=== PATIENT | female | born 1945 | race Caucasian/White ===

== ENCOUNTER 2017-05-24 16:20 | Inpatient (IN) | payer MEDICARE, MEDICAID ==
[~2017-05-24] VITALS: Ht 162.6 cm; Wt 118.4 kg
[~2017-05-24 16:20] MED LIST: ASP81EC PO; Atorvastatin Calcium PO; CYCL1TAB18 PO; DIPH2.5T73 PO; ESOM40CA39 PO; FENO1TAB42 PO; FER325T PO; HYDR25T PO; INSUINJ37 SUBCUT; Insulin Detemir SC; LIS10T PO; LORA-655 PO; MORP15TA PO; MUPI2OIN10 TOP; ONDA4TAB5 PO; OXY10CRT PO; ROSU20TA14 PO; SUCR1TAB36 PO; VENL37.56 PO; ZOLP10TA PO
[2017-05-24] MEDS ORDERED: SODIUM CHLORIDE 0.9% 2,000 ML IV ONE (17:45)
[2017-05-24 17:55] LABS: Basophils # (auto) 0 uL; Eosinophils # (auto) 0 uL; Eosinophils % (auto) 0.4 % (0.0-7.0); Lymphocytes # (auto) 0.5 uL; Neutrophils # (auto) 7.8 uL; Red Blood Cells 5.15 10^6/uL (4.0-5.20); Red Cell Distribution Width 17.3 % (11.8-14.3); White Blood Cell 8.9 10^3/uL (4.4-10.8)
[2017-05-24 17:56] LABS: Basophils % (auto) 0.3 % (0.0-2.0); Hematocrit 38.9 % (36.0-46.0); Hemoglobin 12.6 g/dL (12.2-16.2); Lymphocytes % (auto) 5.8 % (10.0-50.0); Mean Corpuscular Hemoglobin 24.4 pg (28.0-32.0); Mean Corpuscular Hgb Conc. 32.3 g/dL (32.0-36.0); Mean Corpuscular Volume 75.5 fL (80.0-100.0); Monocytes # (auto) 0.6 uL; Monocytes % (auto) 6.2 % (0.0-12.0); Neutrophils % (auto) 87.3 % (37.0-80.0); Nucleated Red Blood Cells % 0.1 %; Platelet Count (auto) 187 10^3/uL (140-450)
[2017-05-24] MEDS ORDERED: MORPHINE SULF INJ 2 MG/ML SYRINGE 1ML IV ONE (18:00)
[2017-05-24] MEDS ORDERED: ONDANSETRON HCL 4 MG/2 ML VIAL IV ONE (18:00)
[2017-05-24 18:05] LABS: Urine Amorphous Crystal FEW /hpf (None Seen); Urine Bacteria NONE SEEN /hpf (None Seen); Urine Blood 3+ /uL (Negative); Urine Mucus FEW (None Seen); Urine Specific Gravity 1.021 (1.001-1.035); Urine WBC 1 /hpf (0 - 5)
[2017-05-24 18:19] LABS: Albumin 3.7 g/dL (3.4-5.0); Bilirubin, Total 0.8 mg/dL (0.2-1.0); Calcium 9.5 mg/dL (8.5-10.1); Magnesium 2.7 mg/dL (1.6-2.6); Potassium 5.3 mmol/L (3.5-5.1); Total Protein 7.7 g/dL (6.4-8.2)
[2017-05-24 18:40] LABS: Alcohol, Urine < 3.0 mg/dL (0-5); Amphetamine Screen, Urine NEGATIVE (NEGATIVE); Barbiturate Scree,Urine NEGATIVE (NEGATIVE); Benzodiazephine Screen, Urine NEGATIVE (NEGATIVE); Cannabinoid Screen, Urine NEGATIVE (NEGATIVE); Cocaine Screen, Urine NEGATIVE (NEGATIVE); Opiate Scree,Urine NEGATIVE (NEGATIVE); Phencyclidine Screen, Urine NEGATIVE (NEGATIVE)
[2017-05-24] MEDS ORDERED: HYDROmorphone HCL 2 MG/ML VL IV ONE (19:00)
[2017-05-24] MEDS ORDERED: InsuLIN R (HUMAN) 100 UNITS in SODIUM CHL 0.9% 99 ML IV SCH ×5 (19:13→19:17)
[2017-05-24] MEDS ORDERED: SODIUM CHLORIDE 0.9% 1,000 ML IV SCH ×3 (19:13→23:17)
[2017-05-24] MEDS ORDERED: MORPHINE SULF INJ 2 MG/ML SYRINGE 1ML IV PRN ×2 (19:15)
[2017-05-24] MEDS ORDERED: NITROGLYCERIN 0.4 MG SL TAB SL PRN (19:15)
[2017-05-24] MEDS ORDERED: DEXTROSE (50%) 50ML SYRG IV PRN ×2 (19:30→20:45)
[2017-05-24] MEDS ORDERED: ACCU-CHEK COMFORT CURVE STRIP VI SCH (19:30)
[2017-05-24] MEDS: SODIUM CHLORIDE 0.9% 1,000 ML IV SCH ×2 (20:40→22:40)
[2017-05-24] MEDS ORDERED: ENOXAPARIN SOD 100 MG/1 ML SYRINGE SC ONE (21:00)
[2017-05-24] MEDS: ACCU-CHEK COMFORT CURVE STRIP VI SCH ×3 (21:02→23:35)
[2017-05-24] MEDS: InsuLIN R (HUMAN) 100 UNITS in SODIUM CHL 0.9% 99 ML IV SCH ×2 (21:05→22:16)
[2017-05-25] MEDS ORDERED: SODIUM CHLORIDE 0.9% 1,000 ML IV SCH ×3 (00:40→12:15)
[2017-05-25] MEDS: ACCU-CHEK COMFORT CURVE STRIP VI SCH ×11 (01:35→23:29)
[2017-05-25 02:10] LABS: BUN/Creatinine Ratio 28.2; Calcium 7.9 mg/dL (8.5-10.1); Magnesium 1.8 mg/dL (1.6-2.6); Phosphorus 3.6 mg/dL (2.5-4.90); Potassium 3.7 mmol/L (3.5-5.1)
[2017-05-25] MEDS: SODIUM CHLORIDE 0.9% 1,000 ML IV SCH ×4 (02:49→22:40)
[2017-05-25 04:24] LABS: BUN/Creatinine Ratio 28.7; Calcium 8.2 mg/dL (8.5-10.1); Magnesium 2.1 mg/dL (1.6-2.6); Phosphorus 2.9 mg/dL (2.5-4.90); Potassium 3.6 mmol/L (3.5-5.1)
[2017-05-25] MEDS ORDERED: SODIUM CHLORIDE 0.9% 500 ML IV ONE (05:15)
[2017-05-25] MEDS ORDERED: DILTIAZEM HCL 25 MG/5 ML VIAL IV ONE (06:15)
[2017-05-25 06:26] LABS: BUN/Creatinine Ratio 31.7; Calcium 7.9 mg/dL (8.5-10.1); Phosphorus 2.5 mg/dL (2.5-4.90); Potassium 3.5 mmol/L (3.5-5.1)
[2017-05-25] MEDS ORDERED: AMIODARONE HCL 150 MG in D5W 5% 100 ML IV ONE (07:30)
[2017-05-25] MEDS ORDERED: AMIODARONE HCL 900 MG in DEXTROSE 500 ML IV SCH (07:31)
[2017-05-25 09:04] LABS: INR 1.08 (0.9-1.15); Partial Thromboplastin Time 22.6 sec (22.64-33.71); Prothrombin Time 11.8 sec (9.37-12.3)
[2017-05-25 09:16] LABS: BUN/Creatinine Ratio 34.1; Calcium 8.3 mg/dL (8.5-10.1); Potassium 3.5 mmol/L (3.5-5.1)
[2017-05-25] MEDS: InsuLIN REG 1unit/0.01ml Soln (100units/ml) SC SCH ×3 (12:00→23:29)
[2017-05-25] MEDS ORDERED: DEXTROSE (50%) 50ML SYRG IV PRN (12:45)
[2017-05-25 15:01] LABS: BUN/Creatinine Ratio 35.9; Calcium 7.8 mg/dL (8.5-10.1); Potassium 3.9 mmol/L (3.5-5.1)
[2017-05-25] MEDS ORDERED: InsuLIN REG 1unit/0.01ml Soln (100units/ml) IV ONE (15:45)
[2017-05-25] MEDS: AMIODARONE HCL 900 MG in DEXTROSE 500 ML IV SCH (18:22)
[2017-05-25 21:44] LABS: BUN/Creatinine Ratio 33.6; Calcium 8.2 mg/dL (8.5-10.1); Potassium 3.9 mmol/L (3.5-5.1)
[2017-05-25] MEDS ORDERED: ENOXAPARIN SOD 100 MG/1 ML SYRINGE SC SCH (22:00)
[2017-05-26] MEDS: SODIUM CHLORIDE 0.9% 1,000 ML IV SCH ×2 (01:00→14:20)
[2017-05-26] MEDS: InsuLIN REG 1unit/0.01ml Soln (100units/ml) SC SCH ×5 (04:00→20:00)
[2017-05-26] MEDS: ACCU-CHEK COMFORT CURVE STRIP VI SCH ×5 (04:00→20:00)
[2017-05-26 05:40] LABS: Basophils # (auto) 0 uL; Basophils % (auto) 0.1 % (0.0-2.0); Eosinophils # (auto) 0 uL; Eosinophils % (auto) 0.1 % (0.0-7.0); Hematocrit 35.6 % (36.0-46.0); Mean Corpuscular Volume 72.9 fL (80.0-100.0); Neutrophils # (auto) 5.1 uL; Nucleated Red Blood Cells % 0.4 %; Red Blood Cells 4.89 10^6/uL (4.0-5.20)
[2017-05-26 05:43] LABS: Hemoglobin 11.8 g/dL (12.2-16.2); Lymphocytes # (auto) 0.7 uL; Lymphocytes % (auto) 9.6 % (10.0-50.0); Mean Corpuscular Hemoglobin 24.2 pg (28.0-32.0); Mean Corpuscular Hgb Conc. 33.2 g/dL (32.0-36.0); Monocytes # (auto) 1.2 uL; Monocytes % (auto) 17.6 % (0.0-12.0); Neutrophils % (auto) 72.6 % (37.0-80.0); Platelet Count (auto) 200 10^3/uL (140-450); Red Cell Distribution Width 17.4 % (11.8-14.3)
[2017-05-26 05:55] LABS: BUN/Creatinine Ratio 34.3; Calcium 8.2 mg/dL (8.5-10.1); Magnesium 2.3 mg/dL (1.6-2.6); Phosphorus 1.8 mg/dL (2.5-4.90); Potassium 3.5 mmol/L (3.5-5.1)
[2017-05-26] MEDS ORDERED: HYDROcodone-ACET 10/325MG TAB PO ONE (06:00)
[2017-05-26] MEDS: ENOXAPARIN SOD 100 MG/1 ML SYRINGE SC SCH ×2 (09:59→22:33)
[2017-05-26] MEDS ORDERED: GABA800T97 PO (10:57)
[2017-05-26] MEDS ORDERED: LEV25T PO (10:57)
[2017-05-26] MEDS ORDERED: AMI200T PO (10:57)
[2017-05-26] MEDS ORDERED: CARV3.1240 PO (10:57)
[2017-05-26] MEDS: AMIODARONE HCL 900 MG in DEXTROSE 500 ML IV SCH (11:39)
[2017-05-26] MEDS ORDERED: CARVEDILOL 3.125 MG TAB PO ONE (12:15)
[2017-05-26] MEDS ORDERED: AMIODARONE HCL 200 MG TAB PO ONE (12:15)
[2017-05-26] MEDS: oxyCODONE ER 10 MG TAB PO PRN ×2 (12:42→22:34)
[2017-05-26 14:04] VITALS: BP 121/52
[2017-05-26] MEDS: ONDANSETRON HCL 4 MG/2 ML VIAL IV PRN ×2 (16:33→20:54)
[2017-05-26 22:00] VITALS: BP 135/94
[2017-05-26] MEDS: CARVEDILOL 3.125 MG TAB PO SCH (22:34)
[2017-05-26 23:29] VITALS: BP 135/94
[2017-05-27] VITALS (7 sets, daily range): BP systolic 140–178; BP diastolic 59–100
[2017-05-27] MEDS: ACCU-CHEK COMFORT CURVE STRIP VI SCH ×6 (00:27→20:23)
[2017-05-27] MEDS: InsuLIN REG 1unit/0.01ml Soln (100units/ml) SC SCH ×6 (00:27→20:50)
[2017-05-27] MEDS: ONDANSETRON HCL 4 MG/2 ML VIAL IV PRN ×5 (00:34→20:24)
[2017-05-27] MEDS: oxyCODONE ER 10 MG TAB PO PRN (04:25)
[2017-05-27 09:15] LABS: Eosinophils # (auto) 0 uL; Monocytes # (auto) 0.4 uL; White Blood Cell 5.3 10^3/uL (4.4-10.8)
[2017-05-27 09:16] LABS: Basophils # (auto) 0.1 uL; Basophils % (auto) 1.1 % (0.0-2.0); Eosinophils % (auto) 0.1 % (0.0-7.0); Hemoglobin 12.4 g/dL (12.2-16.2); Lymphocytes # (auto) 0.7 uL; Lymphocytes % (auto) 13.3 % (10.0-50.0); Mean Corpuscular Hemoglobin 24.2 pg (28.0-32.0); Mean Corpuscular Hgb Conc. 33.4 g/dL (32.0-36.0); Mean Corpuscular Volume 72.4 fL (80.0-100.0); Monocytes % (auto) 7.5 % (0.0-12.0); Neutrophils # (auto) 4.1 uL; Platelet Count (auto) 215 10^3/uL (140-450); Red Blood Cells 5.11 10^6/uL (4.0-5.20); Red Cell Distribution Width 18.4 % (11.8-14.3)
[2017-05-27] MEDS: SODIUM CHLORIDE 0.9% 1,000 ML IV SCH ×2 (09:35→17:39)
[2017-05-27 09:41] LABS: Alanine Aminotransferase 111 U/L (13-56); Albumin 2.3 g/dL (3.4-5.0); Alkaline Phosphatase 95 U/L (45-117); Anion Gap 11 (5-15); Aspartate Aminotransferase 123 U/L (15-37); BUN/Creatinine Ratio 36.8; Bilirubin, Total 0.4 mg/dL (0.2-1.0); Blood Urea Nitrogen 32 mg/dL (7-18); Calcium 8.6 mg/dL (8.5-10.1); Carbon Dioxide 17 mmol/L (21-32); Chloride 109 mmol/L (98-107); GFR African American 83 mL/min; GFR Non-African American 68 mL/min; Glucose 237 mg/dL (74-106); Potassium 3.9 mmol/L (3.5-5.1); Sodium 137 mmol/L (136-145); Total Protein 6.1 g/dL (6.4-8.2)
[2017-05-27] MEDS: AMIODARONE HCL 200 MG TAB PO SCH (10:00)
[2017-05-27] MEDS: CARVEDILOL 3.125 MG TAB PO SCH ×2 (10:00→22:28)
[2017-05-27] MEDS: ENOXAPARIN SOD 100 MG/1 ML SYRINGE SC SCH ×2 (10:48→22:28)
[2017-05-27] MEDS ORDERED: FAMOTIDINE (10MG/ML) 2ML VL IV ONE (11:30)
[2017-05-27] MEDS ORDERED: PANTOPRAZOLE 40 MG/10 ML VIAL IV ONE (11:30)
[2017-05-27] MEDS: PROMETHAZINE HCL 25 MG/ML 1ML IV SCH ×3 (12:34→23:58)
[2017-05-27] MEDS: ENALAPRILAT 1.25 MG/ML-1ML VIAL IV PRN ×2 (13:05→23:59)
[2017-05-27] MEDS: METOCLOPRAMIDE HCL 5MG/ml INJ 2ml VIAL IV SCH ×2 (14:00→22:27)
[2017-05-27] MEDS ORDERED: IOHEXOL 300 MG/ML 100ML BOTTLE IJ ONE (14:19)
[2017-05-27] MEDS: PANTOPRAZOLE 40 MG TAB PO SCH (22:27)
[2017-05-28] MEDS: ONDANSETRON HCL 4 MG/2 ML VIAL IV PRN (02:42)
[2017-05-28] MEDS: InsuLIN REG 1unit/0.01ml Soln (100units/ml) SC SCH ×6 (04:32→20:00)
[2017-05-28] MEDS: ACCU-CHEK COMFORT CURVE STRIP VI SCH ×6 (04:32→20:00)
[2017-05-28] MEDS: PROMETHAZINE HCL 25 MG/ML 1ML IV SCH ×4 (05:21→23:18)
[2017-05-28 05:35] VITALS: BP 169/84
[2017-05-28] MEDS: METOCLOPRAMIDE HCL 5MG/ml INJ 2ml VIAL IV SCH ×3 (06:16→23:15)
[2017-05-28] MEDS: SODIUM CHLORIDE 0.9% 1,000 ML IV SCH ×2 (06:16→15:36)
[2017-05-28 06:26] LABS: Basophils # (auto) 0 uL; Eosinophils # (auto) 0 uL; Eosinophils % (auto) 0.1 % (0.0-7.0); Hemoglobin 12.3 g/dL (12.2-16.2); Lymphocytes # (auto) 0.7 uL; Monocytes # (auto) 0.7 uL
[2017-05-28 06:30] LABS: Basophils % (auto) 0.3 % (0.0-2.0); Hematocrit 37.4 % (36.0-46.0); Lymphocytes % (auto) 10.2 % (10.0-50.0); Mean Corpuscular Hemoglobin 24.2 pg (28.0-32.0); Mean Corpuscular Hgb Conc. 32.8 g/dL (32.0-36.0); Mean Corpuscular Volume 73.8 fL (80.0-100.0); Monocytes % (auto) 10.7 % (0.0-12.0); Neutrophils % (auto) 78.7 % (37.0-80.0); Nucleated Red Blood Cells % 0.3 %; Platelet Count (auto) 223 10^3/uL (140-450); Red Blood Cells 5.06 10^6/uL (4.0-5.20); Red Cell Distribution Width 17.7 % (11.8-14.3); White Blood Cell 6.4 10^3/uL (4.4-10.8)
[2017-05-28] MEDS: oxyCODONE ER 10 MG TAB PO PRN (06:54)
[2017-05-28 07:02] LABS: Albumin 2.4 g/dL (3.4-5.0); BUN/Creatinine Ratio 28.4; Bilirubin, Total 0.5 mg/dL (0.2-1.0); Calcium 8.9 mg/dL (8.5-10.1); Potassium 3.5 mmol/L (3.5-5.1); Total Protein 6.1 g/dL (6.4-8.2)
[2017-05-28 08:51] VITALS: BP 151/96
[2017-05-28] MEDS ORDERED: PANTOPRAZOLE 40 MG/10 ML VIAL IV SCH (10:00)
[2017-05-28] MEDS ORDERED: FAMOTIDINE (10MG/ML) 2ML VL IV SCH (10:00)
[2017-05-28] MEDS: PANTOPRAZOLE 40 MG TAB PO SCH ×2 (10:03→23:24)
[2017-05-28] MEDS: ENOXAPARIN SOD 100 MG/1 ML SYRINGE SC SCH ×2 (10:04→23:16)
[2017-05-28] MEDS: AMIODARONE HCL 200 MG TAB PO SCH (10:04)
[2017-05-28] MEDS: CARVEDILOL 3.125 MG TAB PO SCH ×2 (10:04→23:24)
[2017-05-28 11:45] VITALS: BP 152/86
[2017-05-28] MEDS ORDERED: GASTROGRAFIN 120 ML SOL ONE (14:21)
[2017-05-28 16:42] VITALS: BP 149/75
[2017-05-28 22:00] VITALS: BP 143/71
[2017-05-29] MEDS: InsuLIN REG 1unit/0.01ml Soln (100units/ml) SC SCH ×7 (04:00→23:36)
[2017-05-29] MEDS: ACCU-CHEK COMFORT CURVE STRIP VI SCH ×7 (04:00→23:36)
[2017-05-29 05:00] VITALS: BP 117/56
[2017-05-29] MEDS: PROMETHAZINE HCL 25 MG/ML 1ML IV SCH ×4 (05:00→22:54)
[2017-05-29] MEDS: METOCLOPRAMIDE HCL 5MG/ml INJ 2ml VIAL IV SCH ×3 (06:00→22:00)
[2017-05-29 06:30] LABS: Basophils # (auto) 0 uL; Eosinophils # (auto) 0.1 uL; Hemoglobin 9.9 g/dL (12.2-16.2); Monocytes # (auto) 0.6 uL; Neutrophils # (auto) 3.2 uL; White Blood Cell 5.1 10^3/uL (4.4-10.8)
[2017-05-29 06:34] LABS: Basophils % (auto) 0.4 % (0.0-2.0); Eosinophils % (auto) 1.6 % (0.0-7.0); Hematocrit 30.5 % (36.0-46.0); Lymphocytes # (auto) 1.2 uL; Lymphocytes % (auto) 22.8 % (10.0-50.0); Mean Corpuscular Hemoglobin 24.5 pg (28.0-32.0); Mean Corpuscular Hgb Conc. 32.5 g/dL (32.0-36.0); Mean Corpuscular Volume 75.4 fL (80.0-100.0); Monocytes % (auto) 12.1 % (0.0-12.0); Neutrophils % (auto) 63.1 % (37.0-80.0); Nucleated Red Blood Cells % 0.2 %; Platelet Count (auto) 187 10^3/uL (140-450); Red Blood Cells 4.05 10^6/uL (4.0-5.20); Red Cell Distribution Width 17.9 % (11.8-14.3)
[2017-05-29 07:03] LABS: BUN/Creatinine Ratio 36.8; Calcium 8.5 mg/dL (8.5-10.1); Potassium 3.2 mmol/L (3.5-5.1)
[2017-05-29] MEDS: SODIUM CHLORIDE 0.9% 1,000 ML IV SCH ×2 (09:00→22:41)
[2017-05-29 09:45] VITALS: BP 136/90
[2017-05-29] MEDS: PANTOPRAZOLE 40 MG TAB PO SCH ×2 (09:47→22:46)
[2017-05-29] MEDS: ENOXAPARIN SOD 100 MG/1 ML SYRINGE SC SCH ×2 (09:47→22:46)
[2017-05-29] MEDS: AMIODARONE HCL 200 MG TAB PO SCH (09:47)
[2017-05-29] MEDS: CARVEDILOL 3.125 MG TAB PO SCH ×2 (09:48→22:00)
[2017-05-29] MEDS: oxyCODONE ER 10 MG TAB PO PRN ×2 (10:13→16:52)
[2017-05-29 11:44] VITALS: BP 156/77
[2017-05-29 16:58] VITALS: BP 135/73
[2017-05-29] MEDS ORDERED: POTASSIUM CHL 20 Meq TABLET PO ONE (17:00)
[2017-05-29] MEDS ORDERED: MORPHINE SULFATE 4 MG/ML SYR/VIAL IV PRN ×2 (20:00)
[2017-05-29] MEDS: HYDROcodone-ACET 5/325MG TAB PO PRN (20:00)
[2017-05-29] MEDS: ONDANSETRON HCL 4 MG/2 ML VIAL IV PRN (21:01)
[2017-05-29 22:00] VITALS: BP 100/48
[2017-05-30] MEDS: ACCU-CHEK COMFORT CURVE STRIP VI SCH ×5 (04:00→22:00)
[2017-05-30] MEDS: InsuLIN REG 1unit/0.01ml Soln (100units/ml) SC SCH ×5 (04:39→21:29)
[2017-05-30] MEDS: PROMETHAZINE HCL 25 MG/ML 1ML IV SCH ×4 (04:43→23:06)
[2017-05-30 05:30] VITALS: BP 116/56
[2017-05-30] MEDS: ONDANSETRON HCL 4 MG/2 ML VIAL IV PRN ×2 (05:32→09:56)
[2017-05-30] MEDS: METOCLOPRAMIDE HCL 5MG/ml INJ 2ml VIAL IV SCH (06:00)
[2017-05-30] MEDS: oxyCODONE ER 10 MG TAB PO PRN (07:58)
[2017-05-30 08:00] VITALS: BP 121/58
[2017-05-30] MEDS: AMIODARONE HCL 200 MG TAB PO SCH (09:07)
[2017-05-30] MEDS: CARVEDILOL 3.125 MG TAB PO SCH ×2 (09:07→22:01)
[2017-05-30] MEDS: ENOXAPARIN SOD 100 MG/1 ML SYRINGE SC SCH ×2 (09:08→22:02)
[2017-05-30] MEDS: PANTOPRAZOLE 40 MG TAB PO SCH (09:08)
[2017-05-30 09:46] LABS: BUN/Creatinine Ratio 17.4; Calcium 8.2 mg/dL (8.5-10.1); Potassium 3.5 mmol/L (3.5-5.1)
[2017-05-30 10:10] LABS: Basophils # (auto) 0.1 uL; Basophils % (auto) 1.3 % (0.0-2.0); Eosinophils # (auto) 0.1 uL; Hemoglobin 9.8 g/dL (12.2-16.2); Lymphocytes # (auto) 1.1 uL; Lymphocytes % (auto) 16.6 % (10.0-50.0); Mean Corpuscular Hemoglobin 23.6 pg (28.0-32.0); Mean Corpuscular Hgb Conc. 32.5 g/dL (32.0-36.0); Mean Corpuscular Volume 72.6 fL (80.0-100.0); Monocytes # (auto) 0.7 uL; Monocytes % (auto) 11.2 % (0.0-12.0); Neutrophils # (auto) 4.5 uL; Neutrophils % (auto) 68.9 % (37.0-80.0); Nucleated Red Blood Cells % 0.1 %; Platelet Count (auto) 197 10^3/uL (140-450); Red Blood Cells 4.13 10^6/uL (4.0-5.20); Red Cell Distribution Width 17.5 % (11.8-14.3); White Blood Cell 6.5 10^3/uL (4.4-10.8)
[2017-05-30 10:20] VITALS: BP 121/58
[2017-05-30] MEDS: SODIUM CHLORIDE 0.9% 1,000 ML IV SCH ×2 (11:31→21:44)
[2017-05-30 11:47] VITALS: BP 92/54
[2017-05-30] MEDS: metroNIDAZOLE 500 MG TAB PO SCH ×2 (13:54→22:00)
[2017-05-30 17:03] VITALS: BP 117/65
[2017-05-30 22:00] VITALS: BP 118/57
[2017-05-31] VITALS (8 sets, daily range): BP systolic 117–143; BP diastolic 61–76
[2017-05-31] MEDS: InsuLIN REG 1unit/0.01ml Soln (100units/ml) SC SCH ×6 (00:30→20:15)
[2017-05-31] MEDS: ACCU-CHEK COMFORT CURVE STRIP VI SCH ×6 (04:12→20:20)
[2017-05-31] MEDS: PROMETHAZINE HCL 25 MG/ML 1ML IV SCH ×4 (05:07→22:41)
[2017-05-31] MEDS: metroNIDAZOLE 500 MG TAB PO SCH ×3 (05:10→22:39)
[2017-05-31] MEDS: HYDROcodone-ACET 5/325MG TAB PO PRN ×2 (06:37→23:44)
[2017-05-31] MEDS: ONDANSETRON HCL 4 MG/2 ML VIAL IV PRN ×2 (08:14→20:14)
[2017-05-31] MEDS: oxyCODONE ER 10 MG TAB PO PRN ×2 (08:14→20:14)
[2017-05-31] MEDS: AMIODARONE HCL 200 MG TAB PO SCH (09:40)
[2017-05-31] MEDS: CARVEDILOL 3.125 MG TAB PO SCH ×2 (09:40→22:40)
[2017-05-31] MEDS: ENOXAPARIN SOD 100 MG/1 ML SYRINGE SC SCH ×2 (09:41→22:39)
[2017-05-31] MEDS ORDERED: GABA800T97 PO (10:55)
[2017-05-31] MEDS: SODIUM CHLORIDE 0.9% 1,000 ML IV SCH (13:58)
[2017-06-01] MEDS: InsuLIN REG 1unit/0.01ml Soln (100units/ml) SC SCH ×5 (00:48→17:35)
[2017-06-01] MEDS: PROMETHAZINE HCL 25 MG/ML 1ML IV SCH (04:29)
[2017-06-01] MEDS: ACCU-CHEK COMFORT CURVE STRIP VI SCH ×5 (04:29→17:34)
[2017-06-01 05:00] VITALS: BP 128/62
[2017-06-01] MEDS: oxyCODONE ER 10 MG TAB PO PRN ×2 (06:38→13:36)
[2017-06-01] MEDS: metroNIDAZOLE 500 MG TAB PO SCH ×2 (06:38→13:35)
[2017-06-01] MEDS: SODIUM CHLORIDE 0.9% 1,000 ML IV SCH ×2 (06:39→17:00)
[2017-06-01 09:00] VITALS: BP 153/67
[2017-06-01] MEDS: ENOXAPARIN SOD 100 MG/1 ML SYRINGE SC SCH (09:40)
[2017-06-01] MEDS: AMIODARONE HCL 200 MG TAB PO SCH (09:40)
[2017-06-01] MEDS: CARVEDILOL 3.125 MG TAB PO SCH (09:41)
[2017-06-01] MEDS ORDERED: PROMETHAZINE HCL 25 MG/ML 1ML IV SCH (12:00)
[2017-06-01] MEDS ORDERED: PROMETHAZINE HCL 25 MG/ML 1ML IV PRN (12:30)
[2017-06-01 13:00] VITALS: BP 138/63
[2017-06-01] MEDS ORDERED: GABAPENTIN 400 MG CAP PO SCH (14:00)
[2017-06-01 16:30] VITALS: BP 138/63
[2017-06-01 17:00] VITALS: BP 123/75
== END 2017-06-01 18:30 | DRG 280 ==
LOC: ER 16:20 → EDBD 16:20 → TELE 16:21 → TELE-WESTW 05-26 21:27
PROVIDERS: ADMIT Nurse Practitioner Acute Care; ATTEND Internal Medicine
DX: I21.A1 Myocardial infarction type 2 (principal); E11.10 Type 2 diabetes mellitus with ketoacidosis without coma; K56.600 Partial intestinal obstruction, unspecified as to cause; N17.9 Acute kidney failure, unspecified; E11.21 Type 2 diabetes mellitus with diabetic nephropathy; I48.0 Paroxysmal atrial fibrillation; N18.3 Chronic kidney disease, stage 3 (moderate); I48.92 Unspecified atrial flutter; E87.1 Hypo-osmolality and hyponatremia; E11.22 Type 2 diabetes mellitus with diabetic chronic kidney disease; E87.5 Hyperkalemia; J44.9 Chronic obstructive pulmonary disease, unspecified; E83.51 Hypocalcemia; E86.0 Dehydration; I12.9 Hypertensive chronic kidney disease with stage 1 through stage 4 chronic kidney disease, or unspecified chronic kidney disease; D50.9 Iron deficiency anemia, unspecified; E78.5 Hyperlipidemia, unspecified; F32.9 Major depressive disorder, single episode, unspecified; F41.9 Anxiety disorder, unspecified; G89.4 Chronic pain syndrome; I25.10 Atherosclerotic heart disease of native coronary artery without angina pectoris; Z96.652 Presence of left artificial knee joint; K21.9 Gastro-esophageal reflux disease without esophagitis; R74.0 Nonspecific elevation of levels of transaminase and lactic acid dehydrogenase [LDH]; G47.00 Insomnia, unspecified; M79.7 Fibromyalgia; Z87.891 Personal history of nicotine dependence; Z79.4 Long term (current) use of insulin; Z82.3 Family history of stroke; Z82.49 Family history of ischemic heart disease and other diseases of the circulatory system; Z90.710 Acquired absence of both cervix and uterus; Z91.14 Patient's other noncompliance with medication regimen; Z91.19 Patient's noncompliance with other medical treatment and regimen; Z95.1 Presence of aortocoronary bypass graft; Z90.89 Acquired absence of other organs; Z88.2 Allergy status to sulfonamides; Z88.1 Allergy status to other antibiotic agents; Z79.82 Long term (current) use of aspirin; Z79.899 Other long term (current) drug therapy; Z71.3 Dietary counseling and surveillance
CPT/HCPCS: 36415; 36600; 51702; 70450; 71045; 72131; 74177; 74250; 80048; 80053; 80307; 80320; 81001; 82010; 82805; 82962; 83036; 83735; 83880; 84100; 84443; 84484; 85025; 85610; 85730; 87081; 93005; 95819; 96361; 96374; 96375; 97163; 99291; C9113; J1815; J2405; J3490; J7060